=== PATIENT | female | born 1970 | race Caucasian/White ===

== ENCOUNTER 2017-04-13 21:24 | Inpatient (IN) | payer BC, OTHER ==
[~2017-04-13] VITALS: Ht 160 cm; Wt 65.8 kg
[2017-04-13] MEDS ORDERED: MIRALAX 17 GM POWD.PACK PO PRN (22:30)
[2017-04-13] MEDS ORDERED: IBUPROFEN 600 MG TABLET PO PRN (22:30)
[2017-04-13] MEDS ORDERED: HYDROXYZINE PAMOATE 25 MG CAPSULE PO PRN (22:30)
[2017-04-13] MEDS ORDERED: CLONIDINE HCL 0.1 MG TABLET PO PRN (22:30)
[2017-04-13] MEDS ORDERED: hydrALAZINE HCL 50 MG TABLET PO PRN (22:30)
[2017-04-13] MEDS ORDERED: DICYCLOMINE HCL 20 MG TABLET PO PRN (22:30)
[2017-04-13] MEDS ORDERED: BUPRENORPHINE HCL 2 MG TAB.SUBL SL PRN (22:30)
[2017-04-13] MEDS ORDERED: METHOCARBAMOL 750 MG TABLET PO PRN (22:30)
[2017-04-13] MEDS ORDERED: MAG HYDROX/AL HYDROX/SIMETH 30 ML LIQUID UDC PO PRN (22:30)
[2017-04-13] MEDS ORDERED: LOPERAMIDE HCL 2 MG CAPSULE PO PRN ×2 (22:30)
[2017-04-13] MEDS ORDERED: ACETAMINOPHEN 325 MG TABLET PO PRN (22:30)
[2017-04-13] MEDS ORDERED: diphenhydrAMINE 50 MG CAPSULE PO PRN (22:30)
[2017-04-13] MEDS ORDERED: DIAZEPAM 10 MG TABLET PO PRN ×2 (22:30)
[2017-04-13] MEDS ORDERED: MAGNESIUM HYDROXIDE 30 ML LIQUID UDC PO PRN (22:30)
[2017-04-13] MEDS ORDERED: DIAZEPAM 5 MG TABLET PO PRN (22:30)
[2017-04-13] MEDS ORDERED: LORAZEPAM 2 MG/1 ML VIAL IM PRN (22:30)
[2017-04-13] MEDS ORDERED: ONDANSETRON 4 MG/2 ML VIAL IM PRN (22:30)
[2017-04-13] MEDS ORDERED: DIAZEPAM 10 MG TABLET PO ONE (23:00)
[2017-04-13] MEDS ORDERED: BUPRENORPHINE HCL 2 MG TAB.SUBL SL ONE (23:00)
--- NOTE | 2017-04-13 23:00 | NUR ---
PRE - ADMISSION NOTE : The patient is a 46-year-old female who presents to [facility] Intake for medically supervised withdrawal from prescription oxycodone and diazepam. Pt. is Full Code, on Reg.Diet, allergic to Compazine, Reglan, Toradol, Morphine. 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 She denies any periods of sobriety since starting these medications six months ago. The patient denies a history of withdrawal-induced seizures, denies history of SI/HI, confirms history of audio and video hallucinations, last one on 04/12/2017 . Upon assessment, pt is alert and oriented x4 , the patient reported the following symptoms of withdrawal: anxiety, restlessness, generalized pain, arthralgias, myalgias, fine tremors, chills, diaphoresis, difficulty concentrating, anhedonia. VM=001/100, RC=806, HtZ4=978% with RA, RR=16, Temp=98.1. Last BM on 04/13/17. Pt. was able to provide UDS sample , see results in the PC chart. Pt. will be admitted to the Unit.
[2017-04-13 23:15] VITALS: BP 160/100
[2017-04-13 23:36] LABS: *AMPHETAMINE, URINE NEGATIVE (NEGATIVE); *BARBITURATE, URINE POSITIVE (NEGATIVE); *CANNABINOID, URINE NEGATIVE (NEGATIVE); *COCCAINE, URINE NEGATIVE (NEGATIVE); *OPIATE, URINE NEGATIVE (NEGATIVE); *PHENCYCLIDINE SCREEN,URINE NEGATIVE (NEGATIVE)
[2017-04-13] MEDS ORDERED: DIAZEPAM 10 MG TABLET ONE (23:36)
[2017-04-13 23:39] LABS: BASOPHILS % (AUTO) 0.8 % (0.0-2.0); EOSINOPHILS # (AUTO) 0.5 K/uL (0.0-0.7); HEMATOCRIT 41.8 % (37-47); HEMOGLOBIN 13.2 G/DL (12.0-16.0); LYMPHOCYTES % (AUTO) 37.3 % (20.5-51.5); MEAN CORPUSCULAR HEMOGLOBIN 28.6 UUG (27.0-31.0); MEAN CORPUSCULAR HGB CONC 32 g/dL (32.0-37.0); MEAN CORPUSCULAR VOLUME 90.5 FL (81.0-99.0); MONOCYTES % (AUTO) 17.4 % (0.0-11.0); NEUTROPHILS % (AUTO) 35.5 % (38.5-71.5); PLATELET COUNT (AUTO) 647 K/UL (150-450); RED BLOOD CELL COUNT(AUTO) 4.62 MIL/UL (4.2-5.4); WHITE BLOOD COUNT (AUTO) 5.5 K/UL (4.0-11.2)
[2017-04-13 23:40] LABS: *URINE HCG, QUAL NEGATIVE (NEGATIVE)
[2017-04-13 23:44] LABS: ETHANOL < 3 MG/DL (0-0)
[2017-04-13 23:48] LABS: ALANINE AMINOTRANSFERASE 35 U/L (14-59); ALKALINE PHOSPHATASE 100 U/L (50-136); ASPARTATE AMINOTRANSFERASE 23 U/L (15-37); BILIRUBIN,TOTAL 0.5 mg/dL (0.2-1.0); CARBON DIOXIDE 23 mmol/L (21-32); CHLORIDE 105 mmol/L (98-107); CREATININE 0.8 mg/dL (0.6-1.3); GLUCOSE 97 mg/dL (74-106); MAGNESIUM 1.5 mg/dL (1.8-2.4); POTASSIUM 2.9 mmol/L (3.5-5.1); TOTAL PROTEIN, SERUM 8.6 g/dL (6.4-8.2); UREA NITROGEN, BLOOD 12 mg/dL (7-18)
[2017-04-14] VITALS: BP 122/80
--- NOTE | 2017-04-14 00:05 | NUR ---
ADMISSION NOTE : The patient is a 46-year-old female who presents to [facility] for medically supervised withdrawal from prescription oxycodone and diazepam. She was admitted on 04/13/2017 at 23:15. It is her first Detox. Pt. is Full Code, on Reg.Diet, allergic to Compazine, Reglan, Toradol, Morphine. Pt. is on FALL and SEIZURES precautions. 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 She denies any periods of sobriety since starting these medications six months ago. She states the cause of her ongoing and frequent use have been due to difficulty coping with chronic pain, stress, controlling impulsivity, cravings, and treatment of negative withdrawal symptoms. She states her substance use has negatively impacted her life by impairing close relationships, losing her job, and negatively impacting her physical and mental health. She states that learning how to manage chronic pain, control impulses, cope with anxiety, and staying adherent to long-term treatment are barriers she will have to overcome to achieve full, long-term sobriety. The patient denies a history of withdrawal-induced seizures, her PCP is from [place], [place]. Pt. denies history of SI/HI, confirms history of audio and video hallucinations, last one on 04/12/2017 . She was arrested for DUI and intoxicated in public and was x1 in the intermediate (3 days) . Upon assessment, pt is alert and oriented x4 , the patient reported the following symptoms of withdrawal: anxiety, fine tremors, difficulty concentrating, anhedonia. Pt is cooperative. Speech is clear and audible. Heart rate is regular. Pt denies chest pain or SOB. PERRLA, breathing is even and unlabored. Lung sounds clear in all lobes, abdomen is soft, pt complains of constipation related to opiate use. ON=768/100, SK=136, PsZ0=380% with RA, RR=16, Temp=98.1. Last BM on 04/13/17. CIWA=6, COWS=7. Pt's skin is warm, dry and intact. Pt was oriented to room and unit. Pt. was able to provide UDS sample , see results in the PC chart. Safety measures in place : bed on lowest position with side rails x2 up for safety, call light within reach. Will continue to monitor closely and offer help. SUBSTANCE ABUSE HISTORY : She reports currently consuming 40-60 mg of oxycodone on a daily basis, noting that she takes more than prescribed (up to 40 mg/24 hours). Last consumed on the morning of present admission, approximately 12 hours prior to admission. She reports also taking diazepam 40 mg in total quantity per day for the last 2.5 months, last consumed on the evening of prior admission. PAST MEDICAL HISTORY : 1. Hypothyroidism 2. Budd-Chiari malformation 3. Essential hypertension 4. Anxiety disorder 5. Chronic neck pain 6. Chronic low back pain 7. Chronic tobacco use 8.Depression Past Surgical History 1. Surgical repair of Budd-Chiari malformation; query TIPS procedure 2. Cholecystectomy 3. Bunionectomy 4. Left great toe amputation Past Family History 1. Alcohol use disorder 2. Essential hypertension 3. Heart disease, unspecified PAST Tx HISTORY : It is her first Detox.
[2017-04-14] MEDS ORDERED: LISI10TA5 PO (00:14)
[2017-04-14] MEDS ORDERED: PANT40TA4 PO (00:14)
[2017-04-14 01:24] LABS: EOSINOPHILS % (MANUAL) 9 % (0-8); LYMPHOCYTES % (MANUAL) 35 % (20-40); MONOCYTES % (MANUAL) 13 % (2-10); NEUTROPHILS % (MANUAL) 43 % (42-75)
--- NOTE | 2017-04-14 01:55 | NUR ---
PRN BENADRYL Pt. complains of sleeplessness. PRN BENADRYL given as ordered. Safety measures in place : bed on lowest position with side rails x2 up for safety, call light within reach. Will continue to monitor closely and offer help.
[2017-04-14] MEDS ORDERED: POTASSIUM CHLORIDE 20 MEQ TAB.PRT.SR PO ONE ×2 (02:00→21:00)
[2017-04-14] MEDS ORDERED: MAGNESIUM OXIDE 400 MG TABLET PO ONE ×2 (02:00→21:00)
[2017-04-14] MEDS ORDERED: diphenhydrAMINE 50 MG CAPSULE ONE (02:03)
[2017-04-14] MEDS ORDERED: MAGNESIUM OXIDE 400 MG TABLET ONE (02:05)
[2017-04-14] MEDS ORDERED: POTASSIUM CHLORIDE 20 MEQ TAB.PRT.SR ONE (02:05)
[2017-04-14] MEDS ORDERED: LEVO50TA PO (02:41)
[2017-04-14] MEDS ORDERED: OMEP40CA37 PO (02:42)
--- NOTE | 2017-04-14 02:55 | NUR ---
RE-ASSESSMENT VICKIE Pt. is sleeping, RR=16 , unlabored and even. Safety measures in place : bed on lowest position with side rails x2 up for safety, call light within reach. Will continue to monitor closely and offer help.
--- NOTE | 2017-04-14 06:49 | NUR ---
END OF SHIFT NOTE : The patient is a 46-year-old female who presents to [facility] for medically supervised withdrawal from prescription oxycodone and diazepam. She was admitted on 04/13/2017 at 23:15. It is her first Detox. Pt. is Full Code, on Reg.Diet, allergic to Compazine, Reglan, Toradol, Morphine. Pt. is on FALL and SEIZURES precautions. Pt. denies history of SI/HI, confirms history of audio and video hallucinations, last one on 04/12/2017 . Pt remains compliant with the treatment plan. PRN BENADRYL given during my shift. V/S remain WNL. RR=16, even and unlabored, lungs clear upon auscultation, abdomen soft and non- distended. Pt denies nausea, vomiting and diarrhea. LAST CIWA=6 ,COWS=7 at 0400 , MKERRS=228 ml, voided x 1, slept 2 hours. Safety measures in place : bed on lowest position with side rails x2 up for safety, call light within reach. Will continue to monitor closely and offer help.
--- NOTE | 2017-04-14 07:30 | NUR ---
Start of shift note; Received report from night nurse. Patient is a 46 year old female admitted on 04/13/17 for Opiate/Benzo dependence.Patient to start Subutex/Valium taper. Patient reported history of hypertension, hypothyroidism, cholecystectomy, depression, low back degeneration, brain surgery. Patient noted to be allergic to Compazine, Reglan, Toradol, morphine. Full code status on regular diet. Patient is on fall and seizure precaution. All safety measures secured. Will continue to monitor patient.
[2017-04-14 08:00] VITALS: BP 122/81
[2017-04-14] MEDS ORDERED: TUBERCULIN,PURIF.PROT.DERIV. 5 TU/0.1 ML TEST ID ONE (09:00)
[2017-04-14] MEDS ORDERED: GABAPENTIN 300 MG CAPSULE PO SCH (09:00)
[2017-04-14] MEDS: DIAZEPAM 10 MG TABLET PO SCH ×4 (09:08→21:39)
[2017-04-14] MEDS: BUPRENORPHINE HCL 2 MG TAB.SUBL SL SCH ×4 (09:08→21:38)
[2017-04-14] MEDS: MULTIVITAMINS,THERAPEUTIC TABLET PO SCH (09:08)
[2017-04-14] MEDS: PATIENT MAY USE OWN MED- MD OK PO SCH ×3 (09:09)
[2017-04-14] MEDS: ONDANSETRON ODT 4 MG TAB.RAPDIS SL PRN ×2 (09:19→18:12)
--- NOTE | 2017-04-14 09:19 | NUR ---
PRN medications; Patient is complaining of nausea and multiple episodes of loose stools. PRN Zofran 4mg ODT given for nausea for nausea and Imodium 4mg PO given for diarrhea. will continue to monitor patient for effectiveness of medication.
--- NOTE | 2017-04-14 10:19 | NUR ---
Re-assessment; Patient denies nausea and denies any further episodes of diarrhea. PRN medications were effective.
[2017-04-14 12:00] VITALS: BP 108/62
[2017-04-14] MEDS ORDERED: KETOROLAC TROMETHAMINE 30 MG INJ IM PRN (12:45)
[2017-04-14] MEDS: GABAPENTIN 300 MG CAPSULE PO SCH ×2 (14:32→21:39)
[2017-04-14 16:00] VITALS: BP 101/72
--- NOTE | 2017-04-14 18:16 | NUR ---
PRN medication; Patient is complaining of nausea, PRN Zofran 4mg ODT given to patient. Will continue to monitor patient.
--- NOTE | 2017-04-14 18:29 | NUR ---
End of shift notes; Patient is AOX4. Patient is a 46 year old female admitted on 04/13/17 for Opiate/Benzo dependence. Patient to start Subutex/Valium taper. Patient reported history of hypertension, hypothyroidism, cholecystectomy, depression, low back degeneration, brain surgery. Patient noted to be allergic to Compazine, Reglan, Toradol, morphine. Full code status on regular diet. Patient is on fall and seizure Addendum: 04/14/17 at 1829 by RAJIV HARMON LVN met all patient's needs. Addendum: 04/14/17 at 1831 by RAJIV HARMON LVN All safety measures secured. Patient remained compliant with treatment plan and medication regime. Medications were effective in reducing withdrawal symptoms. Met all needs.
--- NOTE | 2017-04-14 19:15 | NUR ---
START OF SHIFT NOTE : The patient is a 46-year-old female who presents to [facility] for medically supervised withdrawal from prescription oxycodone and diazepam. She was admitted on 04/13/2017 at 23:15. It is her first Detox. Pt. is Full Code, on Reg.Diet, allergic to Compazine, Reglan, Toradol, Morphine. Pt. is on FALL and SEIZURES precautions. Pt. denies history of SI/HI, confirms history of audio and video hallucinations, last one on 04/12/2017 . Pt remains compliant with the treatment plan, alert, oriented x4, is sad because of her relationship with . V/S remain WNL. RR=16, even and unlabored, lungs clear upon auscultation, abdomen soft and non- distended. Safety measures in place : bed on lowest position with side rails x2 up for safety, call light within reach. Will continue to monitor closely and offer help.
[2017-04-14 20:00] VITALS: BP 112/79
[2017-04-14] MEDS ORDERED: TRAZODONE 100 MG TABLET PO SCH (21:00)
--- NOTE | 2017-04-14 21:00 | NUR ---
PRN VISTARIL Pt. complains of increased level of anxiety. PRN VISTARIL given as ordered. Safety measures in place : bed on lowest position with side rails x2 up for safety, call light within reach. Will continue to monitor closely and offer help.
--- NOTE | 2017-04-14 22:00 | NUR ---
RE-ASSESSMENT SHAHID Pt. is sleeping, RR=16 , unlabored and even. Safety measures in place : bed on lowest position with side rails x2 up for safety, call light within reach. Will continue to monitor closely and offer help.
[2017-04-15 04:00] VITALS: BP 90/63
[2017-04-15] MEDS: PATIENT MAY USE OWN MED- MD OK PO SCH ×3 (07:24→08:15)
[2017-04-15 07:29] LABS: BASOPHILS % (AUTO) 0.9 % (0.0-2.0); EOSINOPHILS # (AUTO) 0.5 K/uL (0.0-0.7); EOSINOPHILS % (AUTO) 9.8 % (0.0-7.0); HEMATOCRIT 35.2 % (37-47); HEMOGLOBIN 11.3 G/DL (12.0-16.0); LYMPHOCYTES # (AUTO) 1.6 K/UL (0.8-4.8); LYMPHOCYTES % (AUTO) 35.5 % (20.5-51.5); MEAN CORPUSCULAR HEMOGLOBIN 29.5 UUG (27.0-31.0); MEAN CORPUSCULAR HGB CONC 32 g/dL (32.0-37.0); MEAN CORPUSCULAR VOLUME 91.7 FL (81.0-99.0); MONOCYTES # (AUTO) 0.8 K/UL (0.1-1.30); NEUTROPHILS # (AUTO) 1.7 K/UL (1.8-8.9); NEUTROPHILS % (AUTO) 36.9 % (38.5-71.5); PLATELET COUNT (AUTO) 536 K/UL (150-450); RED BLOOD CELL COUNT(AUTO) 3.83 MIL/UL (4.2-5.4); WHITE BLOOD COUNT (AUTO) 4.6 K/UL (4.0-11.2)
[2017-04-15 07:34] LABS: MONOCYTES % (AUTO) 16.9 % (0.0-11.0)
[2017-04-15 07:43] LABS: CREATININE 0.8 mg/dL (0.6-1.3); MAGNESIUM 1.5 mg/dL (1.8-2.4); PHOSPHOROUS 4.8 mg/dL (2.5-4.9); POTASSIUM 3.6 mmol/L (3.5-5.1)
--- NOTE | 2017-04-15 07:55 | NUR ---
START OF SHIFT Rcvd client from ongoing nurse, client is in room, she is a/o x4, she presents with depressed mood, flat affect and flushed face. She reports anxiety, cold, chills, restless legs and fatigue, she stated, "I haven't been able to sleep for the past few days, I need something to help me sleep." Client denies any N/V/D or SI/HI. Encouraged client to increase fluid intake to facilitate detox. Encourage client to attend group therapy for skills to maintain sobriety. Client is a 46 yo female admitted for withdrawal from prescription oxycodone and diazepam. She is on 5 day Diazepam/Subutex taper, tolerating well (day 2). Last CIWA 5 /COWS 5 @ 0400. PRN Vistaril for anxiety. noted effective. Client slept 7 hrs. She reports allergies to Ketorolac. Metoclopramide, Morphine, Prochlorperazine, full code, regular diet. Client denies any history of withdrawal-induced seizure. She is on seizure precautions. Call light within reach. Side rails up x2/padded, bed locked and in low position.
[2017-04-15] MEDS: BUPRENORPHINE HCL 2 MG TAB.SUBL SL SCH ×3 (08:14→20:48)
[2017-04-15] MEDS: GABAPENTIN 300 MG CAPSULE PO SCH ×2 (08:14→15:17)
[2017-04-15] MEDS: ESCITALOPRAM OXALATE 10 MG TABLET NG SCH (08:14)
[2017-04-15] MEDS: DIAZEPAM 10 MG TABLET PO SCH ×3 (08:15→20:43)
[2017-04-15] MEDS: MULTIVITAMINS,THERAPEUTIC TABLET PO SCH (08:15)
[2017-04-15 08:26] LABS: BAND % (MANUAL) 2 % (0-10); EOSINOPHILS % (MANUAL) 8 % (0-8); LYMPHOCYTES % (MANUAL) 43 % (20-40); MONOCYTES % (MANUAL) 10 % (2-10); NEUTROPHILS % (MANUAL) 37 % (42-75)
[2017-04-15 08:51] VITALS: BP 107/72
--- NOTE | 2017-04-15 11:00 | NUR ---
MD Notification Dr. Heart notified of abnormal lab values including RBC, Hgb, Hct and Magnesium 1.5. Client is asymptomatic. NNO at this time, will f-up.
--- NOTE | 2017-04-15 11:20 | NUR ---
HEP C education handout provided for client.
[2017-04-15 12:00] VITALS: BP 110/73
[2017-04-15] MEDS: BACLOFEN 10 MG TABLET PO SCH ×2 (15:17→20:43)
[2017-04-15 16:40] VITALS: BP 100/68
--- NOTE | 2017-04-15 16:42 | NUR ---
Magnesium 1.5 replaced with Mag-Ox 400mg PO, client tolerated well.
[2017-04-15] MEDS ORDERED: MAGNESIUM OXIDE 400 MG TABLET PO ONE ×2 (17:00→21:00)
--- NOTE | 2017-04-15 19:00 | NUR ---
END OF SHIFT Client is a 46 yo female admitted for withdrawal from prescription oxycodone and diazepam. She is on 5 day Diazepam/Subutex taper, tolerating well (day 2). Last CIWA 7 /COWS 7 @ 1600. Magnesium 1.5 replaced with Mag-Ox 400mg PO, client tolerated well. Client is compliant with 2/3 of group therapy. Adequate PO intake 2100mL, void x 3. She reports allergies to Ketorolac. Metoclopramide, Morphine, Prochlorpemazine, full code, regular diet. Client denies any history of withdrawal-induced seizure. She is on seizure precautions. Call light within reach. Side rails up x2/padded, bed locked and in low position.
[2017-04-15 20:00] VITALS: BP 113/78
--- NOTE | 2017-04-15 20:00 | NUR ---
Start of Shift Pt is a 46 year old female admitted for Opiate/Benzo dependence,placed on 5 day Subutex and 5 day Valium taper. Pt reported using Percocet 60mg/daily, Valium 40mg/daily and Ambien 10mg x5 weeks. PMH: HTN, Hypothyroidism, Cervical disc degeneration, low back degeneration, brain surgery, cholecystectomy and depression. Pt reports allergies to ketorolac, metoclopramide, morphine and prochlorperazine. Upon assessment, pt presents with depressed mood, reports feeling chills and muscle aches throughout, tremors felt upon touch, skin flushed and anxiety. Respirations even/unlabored, denies SOB/chest pain, denies n/v/d, medications due. Safety measures in place, call light within reach, side rails up x2, bed locked and in low position. Will continue to monitor.
[2017-04-15] MEDS: QUETIAPINE FUMARATE 25 MG TABLET PO SCH (20:43)
[2017-04-15] MEDS: PRAZOSIN HCL 1 MG CAPSULE PO SCH (20:43)
[2017-04-15] MEDS ORDERED: POTASSIUM CHLORIDE 10 MEQ CAPSULE.SA PO ONE (21:00)
[2017-04-15] MEDS ORDERED: GABAPENTIN 300 MG CAPSULE PO SCH (21:00)
[2017-04-16] VITALS: BP 107/80
--- NOTE | 2017-04-16 | NUR ---
Vital Signs BP 107/80, pulse 97, resp 17, Spo2 98% room air, temp 98.1 COWS/CIWA deferred d/t pt sleeping, to assess while pt is awake as ordered. Safety measures in place, will continue to monitor.
[2017-04-16 04:00] VITALS: BP 99/62
--- NOTE | 2017-04-16 04:00 | NUR ---
Vital Signs BP 99/62, pulse 77, resp 18, Spo2 96% room air, temp 98 COWS/CIWA deferred d/t pt sleeping, to assess while pt is awake as ordered. Safety measures in place, will continue to monitor.
[2017-04-16 04:06] LABS: HEPATITIS B SURFACE AG Negative (Negative)
[2017-04-16] MEDS: PATIENT MAY USE OWN MED- MD OK PO SCH ×3 (06:21→09:52)
--- NOTE | 2017-04-16 07:00 | NUR ---
End of Shift Pt is a 46 year old female admitted for Opiate/Benzo dependence,placed on 5 day Subutex and 5 day Valium taper. Pt reported using Percocet 60mg/daily, Valium 40mg/daily and Ambien 10mg x5 weeks. PMH: HTN, Hypothyroidism, Cervical disc degeneration, low back degeneration, brain surgery, cholecystectomy and depression. Pt reports allergies to ketorolac, metoclopramide, morphine and prochlorperazine. During shift, pt presented with depressed mood, reported feeling chills and muscle aches throughout, tremors felt upon touch, skin flushed and anxiety scheduled taper medications administered, CIWA 8 and COWS 8. No PRN medications administered, Pt slept for 9 hours, intake of 300 ml PO, voids x2 and stool x0. Safety measures in place, call light within reach, side rails up x2, bed locked and in low position. Endorsed to day shift nurse.
--- NOTE | 2017-04-16 07:34 | NUR ---
START OF SHIFT NOTE: Received report from manufacturing shift supervisor nurse. Pt is a 46 year old female admitted 04-13-17 for Opiate/Benzo dependence. Pt is on on 5 day Subutex and 5 day Valium taper. Tolerating well. Pt is alert and oriented X4. Color good, skin warm and dry. Respirations even and unlabored. Pt resting in bed. Safety precautions observed. Call light within reach. Will continue to monitor.
[2017-04-16 08:00] VITALS: BP 116/80
[2017-04-16] MEDS ORDERED: BUPRENORPHINE HCL 2 MG TAB.SUBL SL SCH (09:00)
--- NOTE | 2017-04-16 09:00 | NUR ---
VSS COWS 10 CIWA 10 states " I feel like I've been hit by a truck" c/o muscle aches, tremors, sweating and anxiety. Addendum: 04/16/17 at 1158 by EWA YOUSIF RN TB test read LFA negative
[2017-04-16] MEDS: DIAZEPAM 5 MG TABLET PO SCH ×4 (09:51→22:00)
[2017-04-16] MEDS: ESCITALOPRAM OXALATE 10 MG TABLET NG SCH (09:51)
[2017-04-16] MEDS: MULTIVITAMINS,THERAPEUTIC TABLET PO SCH (09:51)
[2017-04-16] MEDS: GABAPENTIN 300 MG CAPSULE PO SCH ×3 (09:51→21:55)
[2017-04-16] MEDS: BACLOFEN 10 MG TABLET PO SCH (09:51)
[2017-04-16 12:30] VITALS: BP 116/80
--- NOTE | 2017-04-16 13:00 | NUR ---
VSS CIWA 7 c/o body aches and anxiety
[2017-04-16] MEDS: BUPRENORPHINE HCL 2 MG TAB.SUBL SL SCH ×2 (14:41→22:00)
[2017-04-16] MEDS: BACLOFEN 20 MG TABLET PO SCH ×2 (14:52→21:55)
[2017-04-16] MEDS ORDERED: METHOCARBAMOL 750 MG TABLET PO PRN (15:00)
--- NOTE | 2017-04-16 17:06 | NUR ---
B/P 92/56. Valium held. Pt sleeping. CIWA deferred.
[2017-04-16 17:19] VITALS: BP 92/60
--- NOTE | 2017-04-16 19:09 | NUR ---
END OF SHIFT NOTE: Report given to overnight houseperson nurse . Pt is a 46 year old female admitted 04-13-17 for Opiate/Benzo dependence. Pt is on on 5 day Subutex and 5 day Valium taper. Tolerating well. Pt is alert and oriented X4. Color good, skin warm and dry. Respirations even and unlabored. Last COWS 6 and CIWA 7 . Valium held @ 1700 due to sedation and B/P 92/56. Pt resting in bed. Safety precautions observed. Call light within reach.
[2017-04-16 20:00] VITALS: BP 94/67
--- NOTE | 2017-04-16 20:00 | NUR ---
Start of Shift Pt is a 46 year old female admitted for Opiate/Benzo dependence,placed on 5 day Subutex and 5 day Valium taper. Pt reported using Percocet 60mg/daily, Valium 40mg/daily and Ambien 10mg x5 weeks. PMH: HTN, Hypothyroidism, Cervical disc degeneration, low back degeneration, brain surgery, cholecystectomy and depression. Pt reports allergies to ketorolac, metoclopramide, morphine and prochlorperazine. Upon assessment, Pt is in room, sleeping, respiration even/unlabored, arousable. Safety measures in place, call light within reach, side rails up x2, bed locked and in low position. Will continue to monitor.
[2017-04-16] MEDS: ACETAMINOPHEN 325 MG TABLET PO SCH (21:55)
[2017-04-16] MEDS: PRAZOSIN HCL 1 MG CAPSULE PO SCH (22:00)
[2017-04-16] MEDS: QUETIAPINE FUMARATE 25 MG TABLET PO SCH (22:00)
--- NOTE | 2017-04-16 22:00 | NUR ---
Nursing Note Scheduled Prazosin, Seroquel, Valium and Subutex held due to decreased BP 94/67. Pt is noted to be sedated, respirations even/unlabored. Dr. Heart notified.
[2017-04-17] VITALS: BP 105/70
--- NOTE | 2017-04-17 | NUR ---
Vital Signs BP 105/70, pulse 83, resp 17, Spo2 96% room air, temp 98 COWS/CIWA deferred d/t pt sleeping, to assess while pt is awake as ordered. Safety measures in place, will continue to monitor.
[2017-04-17 04:00] VITALS: BP 119/84
--- NOTE | 2017-04-17 04:00 | NUR ---
Vital Signs BP 119/84, pulse 83, resp 16, Spo2 95% room air, temp 98 COWS/CIWA deferred d/t pt sleeping, to assess while pt is awake as ordered. Safety measures in place, will continue to monitor.
[2017-04-17] MEDS: PATIENT MAY USE OWN MED- MD OK PO SCH ×3 (06:39→08:21)
--- NOTE | 2017-04-17 07:00 | NUR ---
End of Shift Pt is a 46 year old female admitted for Opiate/Benzo dependence,placed on 5 day Subutex and 5 day Valium taper. Pt reported using Percocet 60mg/daily, Valium 40mg/daily and Ambien 10mg x5 weeks. PMH: HTN, Hypothyroidism, Cervical disc degeneration, low back degeneration, brain surgery, cholecystectomy and depression. Pt reports allergies to ketorolac, metoclopramide, morphine and prochlorperazine. During shift, pt remained in room, sleeping, respirations even/unlabored - sedation noted - Scheduled Prazosin, Seroquel, Valium and Subutex held due to decreased BP 94/67 - Dr. Heart notified. Pt slept for 10 hours, intake of 796 ml PO, voids x1 and stool x1. Safety measures in place, call light within reach, side rails up x2, bed locked and in low position. Endorsed to days shift nurse.
--- NOTE | 2017-04-17 07:01 | NUR ---
Start of Shift Notes: Received patient in her room. Alert and oriented x 4. Verbally responsive. Able to make needs known. Respirations even and unlabored. No SOB noted. Skin warm and dry to touch. Abdomen soft and non-distended. with (+) BS in all 4 quadrants. No complains of N/V/D or constipation noted. Voids independently. Ambulatory ad zulay with steady gait. Patient is a 46 year old female admitted for opiate and BZO dependence who was placed on a 5-day Valium and 5-day Subutex taper as ordered. No adverse reactions noted. Has past medical hx of HTN, hypothyroidism, cervical disc generation, and cholecystectomy. Allergic to compazine, reglan, toadol and morphine. Educated patient on her current plan of care for the day and her medication regimen. Encouraged oral fluid intake and encouraged group participation to learn new skills to prevent relapse.
[2017-04-17 08:00] VITALS: BP 134/94
[2017-04-17] MEDS: BUPRENORPHINE HCL 2 MG TAB.SUBL SL SCH ×3 (08:17→21:03)
[2017-04-17] MEDS: DIAZEPAM 5 MG TABLET PO SCH ×3 (08:17→21:03)
[2017-04-17] MEDS: ESCITALOPRAM OXALATE 10 MG TABLET NG SCH (08:17)
[2017-04-17] MEDS: ACETAMINOPHEN 325 MG TABLET PO SCH ×3 (08:17→21:02)
[2017-04-17] MEDS: MULTIVITAMINS,THERAPEUTIC TABLET PO SCH (08:17)
[2017-04-17] MEDS: BACLOFEN 20 MG TABLET PO SCH ×3 (08:17→21:01)
[2017-04-17] MEDS: GABAPENTIN 300 MG CAPSULE PO SCH ×3 (08:17→21:02)
[2017-04-17 12:00] VITALS: BP 125/95
[2017-04-17 16:00] VITALS: BP 135/81
--- NOTE | 2017-04-17 18:56 | NUR ---
End of Shift Notes: Patient continues to be on 5-day Subutex and 5-day Ativan taper as ordered. No adverse reactions noted. VS monitored closely. No significant abnormalities noted. Withdrawal symptoms were closely monitored. Initial COWS 7/CIWA 6, patient presented with anxiety, agitation, muscle aches and pains, and fine tremors. Last COWS 4/CIWA 4. Per patient, Subutex and Ativan has been effective in reducing patients withdrawal symptoms. Compliant with care and treatment. All needs met and attended. Will continue to monitor closely.
[2017-04-17 20:00] VITALS: BP 132/99
--- NOTE | 2017-04-17 20:00 | NUR ---
Start of Shift Pt is a 46 year old female admitted for Opiate/Benzo dependence,placed on 5 day Subutex and 5 day Valium taper. Pt reported using Percocet 60mg/daily, Valium 40mg/daily and Ambien 10mg x5 weeks. PMH: HTN, Hypothyroidism, Cervical disc degeneration, low back degeneration, brain surgery, cholecystectomy and depression. Pt reports allergies to ketorolac, metoclopramide, morphine and prochlorperazine. Upon assessment, pt presents with body aches throughout body, reports mild chills, respirations even/unlabored, denies SOB/chest pain, denies n/v/d, skin noted with moderate sweat. Safety measures in place, call light within reach, side rails up x2, bed locked and in low position. Will continue to monitor.
[2017-04-17] MEDS: QUETIAPINE FUMARATE 25 MG TABLET PO SCH (21:01)
[2017-04-17] MEDS: PRAZOSIN HCL 1 MG CAPSULE PO SCH (21:05)
[2017-04-18] VITALS (7 sets, daily range): BP systolic 100–146; BP diastolic 73–101
--- NOTE | 2017-04-18 | NUR ---
Vital Signs BP 100/73, pulse 84 resp 16, Spo2 98% room air, temp 98 COWS/CIWA deferred d/t pt sleeping, to assess while pt is awake as ordered. Safety measures in place, will continue to monitor.
--- NOTE | 2017-04-18 04:00 | NUR ---
Vital Signs BP 109/73, pulse 84 resp 16, Spo2 98% room air, temp 98 COWS/CIWA deferred d/t pt sleeping, to assess while pt is awake as ordered. Safety measures in place, will continue to monitor. Addendum: 04/18/17 at 0538 by ROGELIO DANIELLE RN Vital Signs BP 109/79, pulse 85 resp 16, Spo2 98% room air, temp 98 COWS/CIWA deferred d/t pt sleeping, to assess while pt is awake as ordered. Safety measures in place, will continue to monitor.
[2017-04-18] MEDS: PATIENT MAY USE OWN MED- MD OK PO SCH ×3 (06:24→08:37)
--- NOTE | 2017-04-18 07:00 | NUR ---
End of Shift Pt is a 46 year old female admitted for Opiate/Benzo dependence,placed on 5 day Subutex and 5 day Valium taper. Pt reported using Percocet 60mg/daily, Valium 40mg/daily and Ambien 10mg x5 weeks. PMH: HTN, Hypothyroidism, Cervical disc degeneration, low back degeneration, brain surgery, cholecystectomy and depression. Pt reports allergies to ketorolac, metoclopramide, morphine and prochlorperazine. During shift, pt presented with body aches throughout body, reports mild chills scheduled taper medications administered, COWS 4 and CIWA 3. No PRN medications administered during shift. Pt slept for 8 hours, intake of 3900 ml PO, voids x4 and stool x1. Safety measures in place, call light within reach, side rails up x2, bed locked and in low position. Endorsed to day shift nurse.
[2017-04-18] MEDS: BACLOFEN 20 MG TABLET PO SCH ×3 (08:38→20:34)
[2017-04-18] MEDS: GABAPENTIN 300 MG CAPSULE PO SCH ×3 (08:39→20:35)
[2017-04-18] MEDS: ESCITALOPRAM OXALATE 10 MG TABLET NG SCH (08:39)
[2017-04-18] MEDS: ACETAMINOPHEN 325 MG TABLET PO SCH ×3 (08:39→20:32)
[2017-04-18] MEDS: DIAZEPAM 5 MG TABLET PO SCH ×2 (08:39→20:34)
[2017-04-18] MEDS: MULTIVITAMINS,THERAPEUTIC TABLET PO SCH (08:40)
[2017-04-18] MEDS: BUPRENORPHINE HCL 2 MG TAB.SUBL SL SCH ×2 (08:40→20:34)
--- NOTE | 2017-04-18 10:37 | NUR ---
MD Communication: Patient noted with productive cough, nasal congestion and complains of sore throat. Lung sounds are clear. Afebrile. Notified MD Una and will enter in orders. Notified patient.
[2017-04-18] MEDS: BENZOCAINE/MENTH/CETYLPYRD LOZENGE MM PRN (12:27)
--- NOTE | 2017-04-18 12:27 | NUR ---
Cepacol lozenge given: Patient requested for Cepacol lozenge to relieve pain from a sore throat. Cepacol lozenge given. Advised patient not to smoke and encourage increase in oral fluid intake.
--- NOTE | 2017-04-18 12:57 | NUR ---
Re-assessment: Cepacol Per patient, Cepacol was effective in reducing sore throat.
--- NOTE | 2017-04-18 19:15 | NUR ---
START OF SHIFT Received 46 year old female admitted on 04/13/17 for Valium, Percocet and Ambien dependency. Pt is full code with allergy to Toradol, morphine, and compazine. Pt reports a PMHx of HTN, hypothyroidism, cervical disc degeneration, low back degeneration and brain surgery. Pt reports using Percocet 60 mg daily for 6 months. Last dose was 04/13/17. Valium 40 mg daily for 3 months. Last dose was 04/12/17. And ambient 10 mg five times per week. Last dose was 04/11/17. Pt placed on 5 day Subutex and 5 day Valium taper and tolerating well. Per endorsement, pt complained of productive cough, throat culture was done, awaiting results. She received PRN Cepacol for cough. Pt is alert and oriented x4, breathing is even and unlabored. Safety measures in place. Will continue to monitor.
--- NOTE | 2017-04-18 19:24 | NUR ---
End of Shift Notes: Patient continues to be on 5-day Subutex and 5-day Ativan taper as ordered. No adverse reactions noted. VS monitored closely. No significant abnormalities noted. Withdrawal symptoms were closely monitored. Initial COWS 7/CIWA 8, patient presented with anxiety, agitation, muscle aches and pains, and fine tremors. Last COWS 4/CIWA 2. Per patient, Subutex and Ativan has been effective in reducing patients withdrawal symptoms. Patient noted with complain of sore throat, cough and nasal stuffiness. MD aware. Medicated patient with cepacol lozenge as ordered wit help. Unable to participate in group and activities today. Compliant with care and treatment. All needs met and attended. Will continue to monitor closely.
[2017-04-18] MEDS: QUETIAPINE FUMARATE 25 MG TABLET PO SCH (20:32)
[2017-04-18] MEDS: PRAZOSIN HCL 1 MG CAPSULE PO SCH (20:33)
--- NOTE | 2017-04-18 20:36 | NUR ---
PRN CLONIDINE Pt noted with increased BP: 131/100. Denies headache/dizziness. PRN Clonidine administered as ordered. Will reassess.
[2017-04-18] MEDS ORDERED: LIDOCAINE 5% PATCH TD SCH ×2 (21:00→22:00)
--- NOTE | 2017-04-18 21:36 | NUR ---
PRN CLONIDINE REASSESSMENT PRN medication effective. BP decreased to 135/89. Will monitor.
--- NOTE | 2017-04-18 22:02 | NUR ---
MD Communication: Pt c/o severe neck and lower back pain not relieved by scheduled Tylenol. New order received from Dr Tavera for Lidoderm patch, order entered on behalf of MD as he is without computer access.
--- NOTE | 2017-04-18 22:46 | NUR ---
LIDOCAINE PATCH Pt complains of 8/10 lower back and neck pain unrelieved by routine Tylenol. Received new order for Lidocaine patch and administered as ordered. Will monitor.
[2017-04-18] MEDS ORDERED: LIDOCAINE 5% PATCH TD ONE (22:55)
[2017-04-19] VITALS: BP 128/73
--- NOTE | 2017-04-19 | NUR ---
COWS/CIWA DEFERRED COWS and CIWA deferred d/t pt lying in bed with eyes closed noted to be asleep. Respirations 16, breathing even and unlabored. Safety measures in place. Will monitor.
[2017-04-19 04:00] VITALS: BP 124/92
[2017-04-19] MEDS: GUAIFENESIN SUGAR FREE 100 MG/5 ML UDC PO PRN ×2 (05:07→11:58)
--- NOTE | 2017-04-19 05:07 | NUR ---
PRN ROBITUSSIN Pt complains of productive cough. PRN Robitussin administered as ordered. Safety measures in place. Will monitor effectiveness.
--- NOTE | 2017-04-19 06:07 | NUR ---
PRN ROBITUSSIN REASSESSMENT PRN medication effective. Pt noted to be lying in bed with eyes closed and is sleeping comfortably. No facial grimacing. No coughing noted. Will continue to monitor.
[2017-04-19] MEDS: PATIENT MAY USE OWN MED- MD OK PO SCH ×3 (06:51→09:03)
--- NOTE | 2017-04-19 07:09 | NUR ---
Start of Shift Endorsement received from nightshift nurse. Pt is a 46 y/o female admitted for Benzo and opiate dependence. Pt has been placed on a 5 day Subutex and 5 day Valium taper. PT is tolerating the taper and moderately withdrawing AEB COWS 6, CIWA 4. Pt reports sleeping 7 hours. Pt received PRN Lidocaine, clonidine and Robitussin. VS WNL. Full Code. Pt reports feeling tired and having a sore throat. PT is alert and oriented x4. Pt is in STABLE condition at this time. Remains compliant with medication and diet regimen. All needs have been met, All safety measures in place per hospital policy. Bed in lowest position, side rails up x2, call-light within reach. Will continue to monitor
--- NOTE | 2017-04-19 07:21 | NUR ---
END OF SHIFT Pt is a 46 year old female admitted on 04/13/17 for Valium, Percocet and Ambien dependency. Pt is full code with allergy to Toradol, morphine, and compazine. Pt reports a PMHx of HTN, hypothyroidism, cervical disc degeneration, low back degeneration and brain surgery. She continues on 5 day Subutex and 5 day Valium taper and tolerating well. She received PRN clonidine, Robitussin and new order for lidocaine patches. She slept a total of 7 hrs, Intake: 1,000mL, Void: x2, BM:0, COWS: 6, CIWA:4. Pt remains alert and oriented x4, breathing is even and unlabored. Safety measures in place. Endorsed to oncoming shift.
[2017-04-19 08:00] VITALS: BP 97/65
[2017-04-19] MEDS: GABAPENTIN 300 MG CAPSULE PO SCH ×3 (08:57→20:28)
[2017-04-19] MEDS: ESCITALOPRAM OXALATE 10 MG TABLET NG SCH (08:57)
[2017-04-19] MEDS: ACETAMINOPHEN 325 MG TABLET PO SCH ×3 (08:58→20:28)
[2017-04-19] MEDS: MULTIVITAMINS,THERAPEUTIC TABLET PO SCH (08:58)
[2017-04-19] MEDS: BACLOFEN 20 MG TABLET PO SCH ×3 (08:58→20:28)
[2017-04-19] MEDS ORDERED: BUPRENORPHINE HCL 2 MG TAB.SUBL SL SCH (09:00)
[2017-04-19] MEDS ORDERED: LIDOCAINE 5% PATCH TD SCH ×3 (09:00→21:00)
[2017-04-19] MEDS ORDERED: QUET25TA PO (11:51)
[2017-04-19] MEDS ORDERED: BACL20TA PO (11:51)
[2017-04-19] MEDS ORDERED: IBUP-1955 PO (11:51)
[2017-04-19] MEDS ORDERED: ACET325T53 PO (11:51)
[2017-04-19] MEDS ORDERED: PRAZ1CAP2 PO (11:51)
[2017-04-19] MEDS ORDERED: DIPH50CA37 PO (11:51)
[2017-04-19] MEDS ORDERED: GABA-534 PO (11:51)
[2017-04-19] MEDS ORDERED: LIDO30AD10 TD (11:51)
[2017-04-19] MEDS ORDERED: DICY20TA28 PO (11:51)
[2017-04-19 12:00] VITALS: BP 120/70
[2017-04-19] MEDS: SULFAMETH/TRIMETH 800/160 MG TABLET PO SCH ×2 (14:57→20:28)
[2017-04-19 16:00] VITALS: BP 103/77
[2017-04-19] MEDS: BENZOCAINE/MENTH/CETYLPYRD LOZENGE MM PRN ×2 (16:10→18:45)
--- NOTE | 2017-04-19 19:03 | NUR ---
End of Shift Endorsement given to nightshift nurse. Pt is a 46 y/o female admitted for Benzo and opiate dependence. Pt has been placed on a 5 day Subutex and 5 day Valium taper. PT has completed both tapers and has been scheduled to be discharged on 04/20/17. All discharge education has been provided and all discharge documentation has been completed. Pt received PRN Robitussin for a sore throat. Educated pt on medication S/e and diet regimen. PT is tolerating the taper and moderately withdrawing AEB COWS 5, CIWA 5 at 1600. Intake: 2000ml, Void x3, BM x0. Pt received PRN Lidocaine, clonidine and Robitussin. VS WNL. Full Code. Pt reports feeling tired and having a sore throat. PT is alert and oriented x4. Pt is in STABLE condition at this time. Remains compliant with medication and diet regimen. All needs have been met, All safety measures in place per hospital policy. Bed in lowest position, side rails up x2, call-light within reach. Will continue to monitor
--- NOTE | 2017-04-19 19:15 | NUR ---
Start of Shift Note: Patient is a 46 y/o female admitted on 04/13/17 for Opiate and Benzo dependence. Pt is full code with allergy to Toradol, morphine, and compazine. Pt reports a PMHx of HTN, hypothyroidism, cervical disc degeneration, low back degeneration and brain surgery. Pt completed her Subutex and Valium taper and she is scheduled to be discharge tomorrow. Last COWS 5 CIWA 5. Pt was given PRN Robitussin and Cepacol during my shift. Patient is alert & oriented x4. Patient is ambulatory with a steady gait. No shortness of breath noted. Respiration even & unlabored. Abdomen soft & non-distended. No nausea noted. Patient complains of8/10 lower back pain, chills and mild headache. No hand tremors noted. Patient denies hallucinations. Safety precautions are in place. Bed locked in lowest position. Both side rails up. Call light within pts reach. Will continue to monitor patient.
[2017-04-19 20:00] VITALS: BP 124/89
[2017-04-19] MEDS: QUETIAPINE FUMARATE 25 MG TABLET PO SCH (20:28)
[2017-04-19] MEDS: LACTOBACILLUS RHAMNOSUS GG 1 EACH CAPSULE PO SCH (20:28)
[2017-04-19] MEDS: PRAZOSIN HCL 1 MG CAPSULE PO SCH (20:28)
[2017-04-20] MEDS: PATIENT MAY USE OWN MED- MD OK PO SCH ×3 (06:34→08:57)
--- NOTE | 2017-04-20 07:05 | NUR ---
Start of Shift Endorsement received from nightshift nurse. Pt is a 46 y/o female admitted for Benzo and opiate dependence. Pt has been placed on a 5 day Subutex and 5 day Valium taper. PT is tolerating the taper and moderately withdrawing AEB COWS 4, CIWA 4. Pt reports sleeping 8 hours. PT did not receive any PRN medications. Pt has completed all discharge . VS WNL. Full Code. Pt has been scheduled for discharge. All discharge documentation and education has been completed. PT reports readiness for discharge. PT is alert and oriented x4. Pt is in STABLE condition at this time. Remains compliant with medication and diet regimen. All needs have been met, All safety measures in place per hospital policy. Bed in lowest position, side rails up x2, call-light within reach. Will continue to monitor
--- NOTE | 2017-04-20 07:15 | NUR ---
End of Shift Note: Pt had an uneventful night. Pt completed her Subutex and Valium taper and she is scheduled to be discharge today. Last COWS 4 CIWA 4. No PRN medications given during my shift. Patient remained stable and vitals is WNL. Encouraged pt to increase fluid intake. Patient still asleep at this time with no s/s of distress. Pt slept for a total of 8 hours. Pt consumed 1276 ml of fluids and voided 4x with no bowel movement. All needs attended. Safety measures in place. Will endorse pt to day shift nurse.
[2017-04-20 08:01] VITALS: BP 118/74
[2017-04-20] MEDS: LACTOBACILLUS RHAMNOSUS GG 1 EACH CAPSULE PO SCH (08:55)
[2017-04-20] MEDS: ACETAMINOPHEN 325 MG TABLET PO SCH (08:56)
[2017-04-20] MEDS: ESCITALOPRAM OXALATE 10 MG TABLET NG SCH (08:56)
[2017-04-20] MEDS: MULTIVITAMINS,THERAPEUTIC TABLET PO SCH (08:56)
[2017-04-20] MEDS: GABAPENTIN 300 MG CAPSULE PO SCH (08:56)
[2017-04-20] MEDS: GUAIFENESIN SUGAR FREE 100 MG/5 ML UDC PO PRN (08:56)
[2017-04-20] MEDS: BACLOFEN 20 MG TABLET PO SCH (08:57)
[2017-04-20] MEDS: SULFAMETH/TRIMETH 800/160 MG TABLET PO SCH (09:00)
--- NOTE | 2017-04-20 09:30 | NUR ---
Discharge note PT has been discharged from [facility] to [facility]. PT is in Stable condition, VS WNL. Denies suicidal and homicidal ideations at this time. . All documentation has been completed, paperwork signed and dated. Pt left with all of her belongings, medications and prescriptions. Pt has been discharged from [facility] on 04/20/17 at 0930. has been Notified.
== END 2017-04-20 09:30 | disposition other institution (70) | DRG 895 ==
LOC: SRC 21:24
PROVIDERS: ADMIT Internal Medicine; ATTEND Internal Medicine
PROC: HZ2ZZZZ Detoxification Services for Substance Abuse Treatment (ICD-10-PCS; principal; 2017-04-13)
PROC: HZ41ZZZ Group Counseling for Substance Abuse Treatment, Behavioral (ICD-10-PCS; 2017-04-15)
PROC: HZ31ZZZ Individual Counseling for Substance Abuse Treatment, Behavioral (ICD-10-PCS; 2017-04-16)
DX: F11.23 Opioid dependence with withdrawal (principal); E83.42 Hypomagnesemia; I15.9 Secondary hypertension, unspecified; L02.413 Cutaneous abscess of right upper limb; L03.113 Cellulitis of right upper limb; F13.230 Sedative, hypnotic or anxiolytic dependence with withdrawal, uncomplicated; E03.9 Hypothyroidism, unspecified; F41.9 Anxiety disorder, unspecified; F17.210 Nicotine dependence, cigarettes, uncomplicated; Z87.798 Personal history of other (corrected) congenital malformations; G89.29 Other chronic pain; G47.00 Insomnia, unspecified; J00 Acute nasopharyngitis [common cold]; Z89.412 Acquired absence of left great toe; Z82.49 Family history of ischemic heart disease and other diseases of the circulatory system; Z81.1 Family history of alcohol abuse and dependence; E87.6 Hypokalemia; F32.9 Major depressive disorder, single episode, unspecified; D64.9 Anemia, unspecified; D47.3 Essential (hemorrhagic) thrombocythemia
CPT/HCPCS: 36415; 70030-TC; 80307; 80345; 80346; 83735; 84100; 84443; 84703; 85025; 86403; 86592; 86705; 86803; 87070; 87340; 87400; 87806; G0480; Q0162; Q0163